=== PATIENT | female | born 1995 | race Caucasian/White ===

== ENCOUNTER 2025-06-02 07:53 | Outpatient (REF) | payer OTHER, SELFPAY ==
--- NOTE | ~2025-06-02 | US_ITS ---
EXAMINATION: US DIAGNOSTIC ULTRASOUND BREAST, RIGHT CLINICAL INFORMATION: Right breast lump for 1.5 months.. COMPARISON: None available. FINDINGS: Targeted ultrasound of the right breast was performed at the location of the palpable concern as indicated by the patient. The survey centered at approximately 8:00-9:00 at 5 cm from the nipple did not reveal suspicious sonographic findings. US/US Breast RT Limited Mamm Only IMPRESSION: Right breast: Negative, no evidence of malignancy. Clinical follow-up is recommended for the palpable concern, independent of imaging findings. Results are provided to the patient at time of visit by the technologist. ASSESSMENT: Category 1: Negative Electronically signed by: Kaylyn King MD 06/02/2025 08:36 AM [facility] [place]
--- OUTSIDE RECORDS SUMMARY | 2025-06-02 08:19 | XMS_ITS | Clinical Summary ---
[facility] Organization [facility] Address [address] [place] [address] Phone Care Team Providers Care Promotional Demonstrator Name Role Phone Physician, No Pcp Primary Care Provider Unavaila ble Allergies No known active allergies Medications escitalopram (LEXAPRO) 20 mg tablet 02/02/2025 Active escitalopram (LEXAPRO) 10 mg tablet Take 1 tablet (10 mg total) by mouth. Active amphetamine-dex troamphetamine XR (ADDERALL XR) 20 mg 24 hr capsule Take 1 capsule (20 mg total) by mouth 1 (one) time each day in the morning. Active spironolactone (ALDACTONE) 50 mg tablet 01/14/2025 Active tretinoin (RETIN-A) 0.025 % cream 09/10/2024 Active albuterol HFA (PROAIR HFA ; PROVENTIL HFA ; VENTOLIN HFA) 90 mcg/actuation inhaler 12/01/2024 Active Encounters Date Type Department Care Team Description 04/28/2025 Telephone [facility] [address] [place] [address] Makayla Douglass DO 04/20/2025 [facility] [phone] Makayla Douglass DO 04/16/2025 3:00 PM EDT Office [facility] [address] [place] [address] Makayla Douglass DO Mass of lower outer quadrant of right breast (Primary Dx); Missed menses from Last 3 Months Surgical History Surgery Date Site/Laterality Comments WISDOM TOOTH EXTRACTION PROCEDURE: HISTORICAL WISDOM TEETH EXTRACTION Medical History Medical History Date Comments Anxiety 05/16/2019 DX:Anxiety Family History Medical History Relation Name Comments Asthma Brother Stomach cancer Maternal Grandmother Breast cancer Other 2 paternal aun ts, dx'd in 50s; also 2 maternal aunts dx'd in 60s Cancer of Small Bowel Neg Hx Colon cancer Neg Hx Kidney cancer Neg Hx Ovarian cancer Neg Hx Pancreatic cancer Neg Hx Uterine cancer Neg Hx Relation Name Status Comments Brother Alive Father Alive Maternal Grandfather Maternal Grandmother Mother Alive Other Paternal Grandfather Paternal Grandmother Social History Tobacco Use Types Packs/Day Years Used Date Smoking Tobacco: Never Smokeless Tobacco: Never Alcohol Use Standard Drinks/Week Comments Yes 0 (1 standard drink = 0.6 oz pur e alcohol) socially Comments No Sex and Gender Information Value Date Recorded Sex Assigned at Not on file Legal Sex Female 4:52 PM EST Gender Identity Not on file Sexual Orientation Not on file Obstetrics History Para Term AB IAB SAB Ectopic Multiple Livin g Live Births 0 0 0 0 0 0 0 0 Last Filed Vital Signs Vital Sign Reading Time Taken Comments Blood Pressure 134/76 04/16/2025 3:04 PM EDT Pulse 92 04/16/2025 3:04 PM EDT Temperature - - Respiratory Rate 16 04/16/2025 3:04 PM EDT Oxygen Saturation - - Inhaled Oxygen Concentration - - Weight 76.7 kg (169 lb) 03/04/2024 2:33 PM EDT Height 162.6 cm (5' 4 ) 04/16/2025 3:04 PM EDT Body Mass Index 29.01 10/20/2022 2:45 PM EDT Plan of Treatment Health Maintenance Due Date Last Done Comments HPV Vaccines (2 - 3-dose series) 01/08/2019 12/11/2018 HIV Screening 06/03/2022 Hepatitis C Screening 06/03/2022 Social Influencers of Health Screening 06/03/2022 Depression Screening 06/25/2024 COVID-19 Vaccine ( season) 2025 05/31/2023, 07/01/2021, 08/14/2020, Additional history exists Influenza Vaccine (#1) 2025 , 03/07/2018, 02/06/2017, Additional history exists Cervical Cancer Screening: Pap Smear 03/04/2027 03/04/2024, 05/27/2020 DTaP,Tdap,and Td Vaccines (8 - Td or Tdap) 12/10/2028 12/10/2018, 10/18/2007, 11/21/2000, Additional history exists RSV Immunization Adult Patients (1 - 1-dose 75+ series) 12/08/2070 HIB Vaccines Completed 04/01/1997, 05/25, 04/10/1996, Additional history exists IPV Vaccines Completed 05/22/2000, 05/25, 04/10/1996, Additional history exists MMR Vaccines Completed 11/21/2000, 04/01/1997 Varicella Vaccines Completed 10/18/2007, 07/23/1997 Meningococcal ACWY Vaccine Completed 10/17, 08/26/2013, 10/18/2007 Hepatitis A Vaccines Completed 07/02/2014, 02/28/2014, 10/17/2013, Additional history exists Hepatitis B Vaccines Completed 08/13/2016, 02/28/2014, 01/27/2014, Additional history exists Meningococcal B Vaccine Aged Out No l onger eligible based on patient's age to complete this topic Pneumococcal Vaccine: Pediatrics (0 to 5 Years) and At-Risk Patients (6 to 49 Years) Aged Out No longer eligible based on patient's age to complete this topic RSV Immunization Patients Under 20 months Aged Out No longer eligible based on patient's age to complete this topic Procedures Procedure Name Priority Date/Time Associated Diagnosis Comments POC , URINE DIAGNOSTIC Routine 04/16/2025 3:16 PM EDT Missed menses PAP SMEAR Routine 03/04/2024 from Last 3 Months or Most Recently Relevant to Health Maintenance Results * POC , urine manually resulted (04/16/2025 3:16 PM EDT) HCG, Ur POC Negative Negative POC hCG Int QC Pass? Yes Yes Urine Urine specimen obtained by clean catch procedure / Unknown 04/16/2025 3:16 PM EDT Makayla Evonne POINT OF CARE TEST ENTER/EDIT ORDERABLES Final Result * Pap smear (03/04/2024) 03/04/2024 Narrative HISTORICAL TESTING LAB RESULTING AGENCY - 03/11/2024 1:26 PM EDT [id number] THINPREP PAP, IMAGED: NEGATIVE FOR SQUAMOUS INTRAEPITHELIAL LESION AND MALIGNANCY ANAHY BELTRE , REYNALDO(ASCP) (CASE ELECTRONICALLY SIGNED 03 11 2024) ADEQUACY: SATISFACTORY ENDOCERVICAL/TRANSFORMATION ZONE COMPONENT PRESENT. SOURCE: THINPREP PAP HPV IF ASCUS, CERVICAL, IMAGED CLINICAL INFORMATION: HPV IF DIAGNOSIS OF ASCUS. PAP HX NEGATIVE, [ Z01.419 ENCOUNTER FOR GYNECOLOGICAL EXAMINATION (GENERAL) (ROUTINE) WITHOUT ABNORMAL FINDINGS]. Leyla ROPER LAB CYTOLOGY ORDERABLES Fin al Result HISTORICAL TESTING LAB RESULTING AGENCY from Last 3 Months or Most Recently Relevant to Health Maintenance Insurance [facility] Care Teams Promotional Demonstrator Relationship Specialty Start Date End Date Physician, No Pcp PCP - General 04/14/25
--- OUTSIDE RECORDS SUMMARY | 2025-06-02 08:19 | XMS_ITS | Encounter Summary ---
Author Organization [facility] Address [address] [place] [address] Phone Care Team Providers Care Net Finisher Name Role Phone Kristin Ibarra Primary Care Provider [phone] Encounter Details Date Type Department Care Team (Late st Contact Info) Description 01/06/2011 Conversion Encounter Pediatric [facility] - [address] [phone] Social History Tobacco Use Types Packs/Day Years Used Date Smoking Tobacco: Never Assessed Comments Unknown Sex and Gender Information Value Date Recorded Sex Assigned at Not on file Legal Sex Female 6:35 PM EDT Gender Identity Not on file Sexual Orientation Not on file documented as of this encounter Plan of Treatment Not on file documented as of this encounter Visit Diagnoses Not on filedocumented in this encounter Care Teams Net Finisher Relationship Specialty Start Date End Date Kristin Ibarra [address] [place] [id number] PCP - General 10/31/17 documented as of this encounter
--- OUTSIDE RECORDS SUMMARY | 2025-06-02 08:19 | XMS_ITS | Clinical Summary ---
Author Organization [facility] Address [address] [place] [address] Phone Care Team Providers Care It Application Architect Name Role Phone Kristin Ibarra Alfred Primary Care Provider [phone] Immunizations Immunization Administration Dates Next Due DTaP 5 11/21/2000, 8,06/12/1996, 996,02/11/1996 Hep A, ped/adol 07/02/2014, 4,10/17/2013, 014 Hep B, ped/adol 02/28/2014, 4,09/11/1996, 996,1995 Hib (PRP-T) 04/01/1997, 6,04/10/1996, 996 IPV 05/22/2000 Influenza, injectable, quadrivalent 04/05/2015 MMR 11/21/2000,04/01/1997 Meningococcal Conj (Menactra) MCV4P 10/17/2013,0 08/26/2013,10/18/2007 OPV 06/12/1996,04/10/1996,02/11/1996 PPD Test 08/29/2016,01/22/2014,08/10/2006 Tdap 10/18/2007 Unknown Vaccine 08/13/2016 Varicella 10/18/2007,07/23/1997 Social History Tobacco Use Types Packs/Day Years Used Date Smoking Tobacco: Never Comments:Never Smoker Comments Unknown Sex and Gender Information Value Date Recorded Sex Assigned at Not on file Legal Sex Female 6:35 PM EDT Gender Identity Not on file Sexual Orientation Not on file Last Filed Vital Signs Vital Sign Reading Time Taken Comments Blood Pressure - - Pulse 89 08/31/2016 1:57 PM EST Temperature 36.6 C (97.8 F) 08/31/2016 1:57 PM EST Respiratory Rate - - Oxygen Saturation 98% 08/31/2016 1:57 PM EST Inhaled Oxygen Concentration - - Weight 71.8 kg (158 lb 3.2 oz) 08/31/2016 1:57 P M EST Height 161.9 cm (5' 3.75 ) 08/31/2016 1:57 PM ES T Body Mass Index 27.37 08/31/2016 1:57 PM EST Plan of Treatment Health Maintenance Due Date Last Done Comments DTaP,Tdap,and Td Vaccines (7 - Td or Tdap) 10/17/2017 10/18/2007, 11/21/2000, 07/23/1997, Additional history exists HPV Vaccines (1 - 3-dose SCDM series) 12/08/2022 Influenza Vaccines (#1) 2025 04/05/2015 COVID-19 Vaccine ( season) 2025 HIB Vaccines Completed 04/01/1997, 05/25, 04/10/1996, Additional history exists IPV Vaccines Completed 05/22/2000, 05/25, 04/10/1996, Additional history exists Varicella Vaccines Completed 10/18/2007, 07/23/1997 Meningococcal Vaccine Completed 10/17/2013 , 08/26/2013, 10/18/2007 MMR Vaccines Completed 01/06/2014, 10/25, 04/01/1997 Hepatitis B Vaccines Completed 02/28/2014, 01/27/2014, 09/11/1996, Additional history exists Hepatitis A Vaccines Completed 07/02/2014, 02/28/2014, 10/17/2013, Additional history exists Men B Vaccine Aged Out No longer elig ible based on patient's age to complete this topic Pneumococcal Vaccine Aged Out No long er eligible based on patient's age to complete this topic Care Teams It Application Architect Relationship Specialty Start Date End Date Kristin Ibarra [address] [place] [address] PCP - General 10/31/17
== END 2025-06-02 07:54 | disposition home or self-care (01) ==
LOC: HO.MAMMO 07:53
PROVIDERS: PCP Physician Assistant; Visit Provider Obstetrics & Gynecology
DX: N63.13 Unspecified lump in the right breast, lower outer quadrant (principal)
CPT/HCPCS: 76642

== ENCOUNTER → 2025-06-02 08:00 | Outpatient (BNV) | payer OTHER, SELFPAY | PROVIDERS: PCP Physician Assistant; Visit Provider Radiology Body Imaging | DX: N63.13 Unspecified lump in the right breast, lower outer quadrant (principal) | CPT/HCPCS: 76642 ==